=== PATIENT | female | born 1995 | race Caucasian/White ===

== ENCOUNTER 2016-12-10 13:40 | Emergency (ER) | payer OTHER ==
[~2016-12-10] VITALS: Ht 157.5 cm; Wt 83.9 kg
[~2016-12-10 13:40] MED LIST: PERCOCET 5-3251 EACH PO; SYNTHROID137 MCG PO; TRI-SPRINTEC T1 EACH PO; VITAMIN D250000 UNIT PO
--- NOTE | 2016-12-10 14:58 | ED THROAT/DENTAL COMPLAINT ---
History of Present Illness General Chief Complaint: Sore Throat, Dental Pain Stated Complaint: SORE THROAT Source: patient Exam Limitations: no limitations Allergies Coded Allergies: Penicillins (HIVES 04/25/16) amoxicillin (HIVES 04/25/16) animal dander (FACIAL SWELLING 04/25/16) banana (ANAPHYLAXIS 04/25/16) Reconcile Medications Azithromycin 250 MG TABLET 1 DP PO AD PHARYNGITIS 2 the first day followed by 1 for days 2-5 Ergocalciferol (Vitamin D2) (Vitamin D2) 50,000 UNIT CAPSULE 1 CAP PO Q10D SUPPLEMENT (Reported) Levothyroxine Sodium (Synthroid) 137 MCG TABLET 1 TAB PO DAILY AC THYROID ( Reported) [MAGIC MOUTHWASH] 15 ML ORAL.SUSP 10 ML PO TID PRN SORE THROAT SWISH AND SWALLOW 1/3 BENADRYL 1/3 MAALOX 1/3 LIDOCAINE Naproxen (Naprosyn) 500 MG TABLET 1 TAB PO BID PRN PAIN Norgestimate-Ethinyl Estradiol (Tri-Sprintec Tablet) 1 EACH TABLET 1 TAB PO DAILY CONTROL (Reported) Triage Note: TRIAGE: 21 Y/O FEMALE PRESENTS C/O 7 LEFT SIDE THROAT PAIN. LEFT TONSIL APPEARS SWOLLEN. SWABS SENT FROM TRIAGE. Triage Nurses Notes Reviewed? yes : No Patient currently breastfeeds: No HPI: This patient is a 21-year-old female who presented to the emergency department today for evaluation of left-sided throat pain. The patient reported that approximately 2 weeks ago she had severe right-sided throat pain that is worse than her current pain. She reported that it resolved on its own. Yesterday she started to develop left-sided throat pain which gets up to an 8 out of 10, is throbbing, and nonradiating. The pain has been constant since onset and worsening. No palliative factors. She reported that her voice has changed from her baseline. She reported that it hurts to swallow. She denied any difficulty breathing, fevers, or chills. The patient denied any other coryza symptoms. (TANISHA CASTANEDA,NATHANIEL) Vital Signs & Intake/Output Vital Signs & Intake/Output Vital Signs Date Time Temp Pulse Resp B/P Pulse O2 O2 Flow FiO2 Ox Delivery Rate 12/10 1713 98.0 98 18 122/74 98 Room Air Room Air 03/04 1414 97.5 108 18 130/77 99 Room Air Room Air ED Intake and Output 12/11 0000 12/10 1200 Intake Total Output Total Balance Patient 185 lb Weight Past History Travel History Traveled to [place] past 21 day No Medical History Any Pertinent Medical History? 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 No (NATHANIEL GARAY PA-C) Review of Systems Review of Systems Constitutional: Reports: no symptoms. EENTM: Reports: see HPI. Respiratory: Reports: no symptoms. Cardiovascular: Reports: no symptoms. GI: Reports: nausea. Denies: vomiting. Genitourinary: Reports: no symptoms. Musculoskeletal: Reports: no symptoms. Skin: Reports: no symptoms. Neurological/Psychological: Reports: no symptoms. All Other Systems: Reviewed and Negative (NATHANIEL GARAY PA-C) Physical Exam Physical Exam Mouth/Throat: positive voice changes. Slight uvular shift to the right. Pharyngeal injection with tonsillar exudates. No dental tenderness. No drooling. No maxillary edema. Positive left-sided mandibular edema. No tongue swelling. No uvular swelling. Left-sided tonsillar edema greater than right- sided tonsillar edema Comments: Well-developed well-nourished person in no acute distress HEENT: Normal EENT exam, moist mucous membranes. No trismus PERRLA bilaterally Neck: Supple. Submandibular and tonsillar lymphadenopathy bilaterally which is nontender to palpation. Full range of motion. No midline tenderness Back: Normal gait Cardiovascular: Regular rate and rhythm with no murmurs Respiratory: No respiratory distress. Breath sounds clear to auscultation bilaterally with no wheezes, rales, or rhonchi. No stridor Extremity: Normal equal pulses Neuro: Alert oriented x3, cranial nerves II through XII grossly intact. Skin: No appreciable rash on exposed skin, skin is warm and dry. Psych: Mood and affect is normal Core Measures ACS in differential dx? No Severe Sepsis Present: No Septic Shock Present: No (TANISHA CASTANEDA,NATHANIEL) Progress Differential Diagnosis: aspirated tooth, carious tooth, epiglottitis, Ludwigs angina, meningitis, odontogenic abscess, zainab-tonsillar abscess, pharyngeal for. body, stomatitis/gingivitis, strep pharyngitis, tooth fracture Plan of Care: Orders Procedure Date/time Status URINE 12/10 1442 Complete THROAT CULTURE W/QUICK STREP 12/10 1354 Active Laboratory Tests 12/10/16 1500: Urine Test NEGATIVE Diagnostic Imaging: Viewed by Me: CT Scan. Discussed w/RAD: CT Scan. Radiology Impression: PATIENT: NICO FELIX PRESENT AGE: 21 PATIENT ACCOUNT NO: [id number] : 94 LOCATION: [facility] ORDERING PHYSICIAN: NATHANIEL GARAY PA-C SERVICE DATE: 12/10/16 EXAM TYPE: CAT - CT NECK W IV CONTRAST EXAMINATION: CT NECK WITH CONTRAST CLINICAL INFORMATION: 21-year-old woman with left throat pain. Evaluate for peritonsillar abscess. COMPARISON: None TECHNIQUE: Helical CT images were obtained through the neck following intravenous administration of 93 mL of Optiray 320. DLP: 569 mGy- cm FINDINGS: The palatine tonsils are symmetrically enlarged and demonstrate striated enhancement. There is also some mucosal enhancement in the oropharynx and nasopharynx. No discrete drainable fluid collection is noted. There is some asymmetric low density material extending from the left piriform sinus into the hypopharynx that could reflect a submucosal retention cyst. The airway itself is otherwise widely patent. There is some hazy infiltration of the left parapharyngeal fat that extends inferiorly down around enlarged jugulodigastric lymph nodes. There is significant lymphadenopathy seen throughout the neck on both sides. This most prominently affects level 2A and 2B nodes and to a lesser degree left level 3 nodes. The parotid, submandibular, and thyroid glands are normal in appearance. Visualized portions of the brain and lung apices are unremarkable. IMPRESSION: Imaging findings are most consistent with pharyngitis with significant associated reactive lymphadenopathy. No discrete drainable fluid collection is yet visible, although there is some infiltration of the left parapharyngeal fat that extends around the adjacent lymphadenopathy. DICTATED BY : NISHA RANDLE MD DATE/TIME DICTATED:12/10/161633 AGENT CONTRACT CLERK:RAD.DO DATE/TIME TRANSCRIBED:12/10/16 / 1634 CONFIDENTIAL, DO NOT COPY WITHOUT APPROPRIATE AUTHORIZATION. <Electronically signed in Other Vendor System> SIGNED BY: RAZIA FULTON,NISHA 12/10/16 4461 (TANISHA CASTANEDA,NATHANIEL) Departure Departure Disposition: HOME OR SELF CARE Condition: Stable Clinical Impression Primary Impression: Pharyngitis Qualifiers: Pharyngitis/tonsillitis etiology: unspecified etiology Qualified Code: J02.9 - Acute pharyngitis, unspecified Referrals: PATIENT HAS NO PRIMARY CARE DR (PCP/Family) Additional Instructions: TAKE ANTIBIOTIC PRESCRIBED AND FOR THE FULL DURATION. USE MAGIC MOUTHWASH DIRECTED: SWISH AND SWALLOW. STAY HYDRATED. RETURN FOR ANY WORSENING SYMPTOMS OR CONCERNS. Departure Forms: Customer Survey General Discharge Information Prescriptions: Current Visit Scripts [MAGIC MOUTHWASH] 10 ML PO TID PRN SORE THROAT #150 ML SWISH AND SWALLOW 1/3 BENADRYL 1/3 MAALOX 1/3 LIDOCAINE Naproxen (Naprosyn) 1 TAB PO BID PRN PAIN #14 TAB Azithromycin 1 DP PO AD #6 TAB 2 the first day followed by 1 for days 2-5 (NATHANIEL GARAY PA-C) PA/EMPLOYEE ADVISER Co-Sign Statement Statement: ED Attending supervision documentation- [] I saw and evaluated the patient. I have also reviewed all the pertinent lab results and diagnostic results. I agree with the findings and the plan of care as documented in the PA's/EMPLOYEE ADVISER's documentation. x I have reviewed the ED Record and agree with the PA's/EMPLOYEE ADVISER's documentation. [] Additions or exceptions (if any) to the PAs/EMPLOYEE ADVISER's note and plan are summarized below: [] (SOFÍA FULTON,KILO)
--- NOTE | 2016-12-10 16:48 | CT SCAN REPORT ---
EXAMINATION: CT NECK WITH CONTRAST CLINICAL INFORMATION: 21-year-old woman with left throat pain. Evaluate for peritonsillar abscess. COMPARISON: None TECHNIQUE: Helical CT images were obtained through the neck following intravenous administration of 93 mL of Optiray 320. DLP: 569 mGy-cm FINDINGS: The palatine tonsils are symmetrically enlarged and demonstrate striated enhancement. There is also some mucosal enhancement in the oropharynx and nasopharynx. No discrete drainable fluid collection is noted. There is some asymmetric low density material extending from the left piriform sinus into the hypopharynx that could reflect a submucosal retention cyst. The airway itself is otherwise widely patent. There is some hazy infiltration of the left parapharyngeal fat that extends inferiorly down around enlarged jugulodigastric lymph nodes. There is significant lymphadenopathy seen throughout the neck on both sides. This most prominently affects level 2A and 2B nodes and to a lesser degree left level 3 nodes. The parotid, submandibular, and thyroid glands are normal in appearance. Visualized portions of the brain and lung apices are unremarkable. IMPRESSION: Imaging findings are most consistent with pharyngitis with significant associated reactive lymphadenopathy. No discrete drainable fluid collection is yet visible, although there is some infiltration of the left parapharyngeal fat that extends around the adjacent lymphadenopathy.
[2016-12-10] MEDS ORDERED: NAPROSYN500 M1 PO ×2 (17:02→17:15)
[2016-12-10] MEDS ORDERED: MAGIC MOUTHWASH PO (17:02)
[2016-12-10] MEDS ORDERED: AZITHROMYCIN250 M1 PO ×2 (17:02→17:15)
[2016-12-10 17:13] VITALS: BP 122/74
== END 2016-12-10 17:19 ==
LOC: ERH 13:40
DX: J02.9 Acute pharyngitis, unspecified (principal); Z72.0 Tobacco use
CPT/HCPCS: 81025; 87147

== ENCOUNTER 2016-12-12 12:12 | Emergency (ER) | payer OTHER ==
[~2016-12-12] VITALS: Ht 154.9 cm; Wt 83.9 kg
[~2016-12-12 12:12] MED LIST changes: +AZITHROMYCIN250 M1 PO; +MAGIC MOUTHWASH PO; +NAPROSYN500 M1 PO
--- NOTE | 2016-12-12 13:37 | ED THROAT/DENTAL COMPLAINT ---
History of Present Illness General Chief Complaint: Sore Throat, Dental Pain Stated Complaint: SORE THROAT Source: patient, old records Exam Limitations: no limitations Vital Signs & Intake/Output Vital Signs & Intake/Output Vital Signs Date Time Temp Pulse Resp B/P Pulse O2 O2 Flow FiO2 Ox Delivery Rate 12/12 1551 97.9 76 18 119/78 98 Room Air 12/12 1220 97.3 122 20 124/82 98 Room Air Allergies Coded Allergies: Penicillins (HIVES 04/25/16) amoxicillin (HIVES 04/25/16) animal dander (FACIAL SWELLING 04/25/16) banana (ANAPHYLAXIS 04/25/16) Reconcile Medications Azithromycin 250 MG TABLET 1 DP PO AD PHARYNGITIS 2 the first day followed by 1 for days 2-5 Clindamycin HCl 300 MG CAPSULE 1 CAP PO TID strep pharyngitis Ergocalciferol (Vitamin D2) (Vitamin D2) 50,000 UNIT CAPSULE 1 CAP PO Q10D SUPPLEMENT (Reported) Levothyroxine Sodium (Synthroid) 137 MCG TABLET 1 TAB PO DAILY AC THYROID ( Reported) [MAGIC MOUTHWASH] 15 ML ORAL.SUSP 10 ML PO TID PRN SORE THROAT SWISH AND SWALLOW 1/3 BENADRYL 1/3 MAALOX 1/3 LIDOCAINE Naproxen (Naprosyn) 500 MG TABLET 1 TAB PO BID PRN PAIN Norgestimate-Ethinyl Estradiol (Tri-Sprintec Tablet) 1 EACH TABLET 1 TAB PO DAILY CONTROL (Reported) Oxycodone HCl/Acetaminophen (Percocet 5-325 MG Tablet) 5 MG-325 MG TABLET 1 TAB PO BID PRN pain Triage Note: PT TO ED C/O CONTINUED SORE THROAT. PT WAS SEEN IN ED SAT, DX'D WITH PHARANGITIS. SENT HOME WITH PO ABX AND NAPROXEN. HAS BEEN TAKING ABX AND PAIN MEDS WITH NO RELIEF. PT'S VOICE NOTED TO BE MUFFLED. AFEBRILE. Triage Nurses Notes Reviewed? yes Onset: Gradual Duration: week(s): (2), constant, getting worse Timing: recent history Injury Environment: home Severity: moderate, severe Severity Numbers: 10 Modifying Factors: Worsens With: other (SWALLOWING). Associated Symptoms: CHILLS : No Patient currently breastfeeds: No HPI: 21-year-old female with history of hypothyroid presents emergency room for evaluation complaining of progressively worsening sore throat constant aching pain. Patient was seen here 2 days ago for similar symptoms and was sent home with a proximal and Magic mouthwash in Z-Josh which she states is not improving her symptoms. She states that she had old Percocet at home which has been helping with her pain. She reports a positive chills. The pain is worse with swallowing. She had a CAT scan performed during her last visit. No fever no shortness of breath chest pain there are no other modifying factors or associated symptoms otherwise. No sick contacts recent travel Past History Travel History Traveled to [place] past 21 day No Medical History Any Pertinent Medical History? 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 No Review of Systems Review of Systems Constitutional: Reports: see HPI. All Other Systems: Reviewed and Negative Comments Review of systems: See HPI, All other systems negative. Constitutional, no chills no fever, no malaise HEENT: No visual changes sore throat no congestion Cardiovascular: No chest pain , no palpitation Skin, no jaundice no rashes, no change in skin Respiratory: No dyspnea no cough no sputum GI: No nausea no vomiting, no diarrhea : No dysuria Muscle skeletal: No joint pain, no joint swelling, no back pain, no neck pain, Neurologic: No numbness, no headache Psych: No stress Heme/endocrine: No bruising no bleeding Immunology: No lymphadenopathy Physical Exam Physical Exam General Appearance: well developed/nourished, alert, awake Mouth/Throat: pharynx swelling (TONSILLAR EXUDATE) Comments: Well-developed well-nourished person in no acute distress Head/Face: Atraumatic, no maxillary/frontal sinus tenderness, no facial swelling Eyes: PERRL, EOMI, no conjunctival injection. Ear:External auditory canal and Tympanic membranes clear, no erythema, no FB. Nose: atraumatic.Normal inspection Throat: Moist mucous membranes.pharynx is erythematous there is significant tonsillar edema and exudate, uvula is slightly shifted to the right no stridor/ drooling or assymetry. No swelling or edema. No trismus Neck: Supple, positive anterior lymphadenopathy, FROM Back: Nontender, no CVA tenderness. Full range of motion Cardiovascular: Regular rate and rhythms no murmurs rubs Respiratory: No respiratory distress. Patient speaking in full complete sentences. Breath sounds clear to auscultation bilaterally: NO W/R/R Abdomen: Soft, nontender nondistended, no appreciable organomegaly. Normal bowel sounds. No rebound/guarding, Extremity: No edema, full range of motion of extremities Neuro: Alert oriented x3, motor sensory normal, There were no obvious focal neurologic abnormalities. Skin: No appreciable rash on exposed skin, skin is warm and dry. Psych: Mood and affect is normal, memory and judgment is normal. Core Measures ACS in differential dx? No Severe Sepsis Present: No Septic Shock Present: No Progress Differential Diagnosis: epiglottitis, Ludwigs angina, odontogenic abscess, zainab- tonsillar abscess, pharyngeal for. body, stomatitis/gingivitis, strep pharyngitis Plan of Care: Orders Procedure Date/time Status Saline Lock 12/12 1345 Active MONOSPOT TEST 12/12 1345 Complete COMPREHENSIVE METABOLIC PANEL 12/12 1345 Complete CBC WITHOUT DIFFERENTIAL 12/12 1345 Complete Laboratory Tests 12/12/16 1410: Anion Gap 12, Estimated GFR > 60, BUN/Creatinine Ratio 21.7, Glucose 82, Calcium 9.4, Total Bilirubin 0.7, AST 14, ALT 24, Alkaline Phosphatase 99, Total Protein 7.4, Albumin 3.8, Globulin 3.6, Albumin/Globulin Ratio 1.1, CBC w Diff NO MAN DIFF REQ, RBC 4.46, MCV 85.6, MCH 29.7, RDW 13.9, MPV 7.8, Gran % 73.4, Lymphocytes % 14.9 L, Monocytes % 11.0 H, Eosinophils % 0.6, Basophils % 0.1, Absolute Granulocytes 9.5 H, Absolute Lymphocytes 1.9, Absolute Monocytes 1.4 H, Absolute Eosinophils 0.1, Absolute Basophils 0, PUBS MCHC 34.7, Infectious [place] Titer NEGATIVE Labs ordered old records reviewed including a patient's previous throat culture and CT from December 10, case discussed Dr. Vasquez. The patient's previous throat culture positive this morning for beta strep group C 12/12/2016 3:43:41 PM discussed the patient at length all of her lab results she is feeling improved discussed with her need for close follow-up with ENT in 48 hours, return anytime sooner with any concerns prescription for Percocet, clindamycin was provided patient is tolerating liquids here there is no drooling , she denies shortness of breath she feels comfortable this plan I answered all of her questions IMPRESSION: Imaging findings are most consistent with pharyngitis with significant associated reactive lymphadenopathy. No discrete drainable fluid collection is yet visible, although there is some infiltration of the left parapharyngeal fat that extends around the adjacent lymphadenopathy. DICTATED BY: NISHA RANDLE MD DATE/TIME DICTATED:12/10/161633 MACHINE DEBURRER:BYRON DATE/TIME TRANSCRIBED:12/10/161633 CONFIDENTIAL, DO NOT COPY WITHOUT APPROPRIATE AUTHORIZATION. <Electronically signed in Other Vendor System> SIGNED BY: NISHA RANDLE MD 12/10/16 1648 (MICHAEL MCMAHON) Departure Departure Time of Disposition: 1541 Disposition: HOME OR SELF CARE Condition: Stable Clinical Impression Primary Impression: Strep pharyngitis Referrals: DEVON FULTON,KALIA Kulkarni PATIENT HAS NO PRIMARY CARE DR (PCP/Family) Additional Instructions: Follow-up with ear nose and throat physician Dr. ZELAYA this week, clindamycin as directed Percocet for breakthrough pain use caution as this will make you drowsy. continue taking and finish the course of Z-Josh Soft liquid diet saltwater gargles as discussed return immediately if he developed fever chills worsening of her symptoms despite medication or any other concerns these were sent to [facility] Departure Forms: Customer Survey General Discharge Information Prescriptions: Current Visit Scripts Clindamycin HCl 1 CAP PO TID #21 CAP Oxycodone HCl/Acetaminophen (Percocet 5-325 MG Tablet) 1 TAB PO BID PRN pain #12 TAB on 12/12/16 at 1543. I agree with the current emergency department documentation. The disposition (admission or discharge) is uncertain at this time, she needs a period of observation for the following reason(s): The ED Nurse caring for this patient has been personally informed as to what the patient is being observed for.
[2016-12-12 14:20] LABS: ABSOLUTE BASOPHIL COUNT 0 /CUMM (0.0-0.2); ABSOLUTE EOSINOPHIL COUNT 0.1 /CUMM (0.0-0.7); ABSOLUTE GRANULOCYTE CT 9.5 /CUMM (1.4-6.5); ABSOLUTE LYMPH COUNT 1.9 /CUMM (1.2-3.4); ABSOLUTE MONOCYTE COUNT 1.4 /CUMM (0.10-0.60); BASOPHIL % 0.1 % (0.0-2.0); EOSINOPHIL % 0.6 % (0-5); GRANULOCYTE % 73.4 % (42.2-75.2); HEMATOCRIT 38.2 % (37-47); MEAN CORPUSCULAR HGB 29.7 PG (27.0-31.0); MEAN CORPUSCULAR HGB CONC 34.7 G/DL (33.0-37.0); MEAN CORPUSCULAR VOLUME 85.6 FL (81.0-99.0); MEAN PLATELET VOLUME 7.8 FL (7.4-10.4); PLATELET COUNT 237 /CUMM (130-400); RBC DISTRIBUTION WIDTH 13.9 % (11.5-14.5); RED BLOOD CELL CT 4.46 /CUMM (4.20-5.40)
[2016-12-12] MEDS ORDERED: CLINDAMYCIN HC300 M1 PO (15:42)
[2016-12-12] MEDS ORDERED: PERCOCET 5-3251 EACH PO (15:42)
[2016-12-12 15:51] VITALS: BP 119/78
== END 2016-12-12 15:53 ==
LOC: ERH 12:12
PROVIDERS: Physician Assistant Medical
DX: J02.0 Streptococcal pharyngitis (principal)
CPT/HCPCS: 96374; 96375; J1885; J2930